=== PATIENT | male | born 1970 | race Caucasian/White ===

== ENCOUNTER 2017-12-21 08:30 | Outpatient (RCR) | payer OTHER, SELFPAY | END 2017-12-27 23:59 | LOC: DC 08:30 | PROVIDERS: Family Provider Family Medicine; PCP Family Medicine; Visit Provider Family Medicine | DX: E11.65 Type 2 diabetes mellitus with hyperglycemia (principal); E78.5 Hyperlipidemia, unspecified; Z71.3 Dietary counseling and surveillance | CPT/HCPCS: 97802; 97803 ==

== ENCOUNTER 2018-03-15 08:20 | Outpatient (RCR) | payer OTHER, SELFPAY | END 2018-03-15 23:59 | LOC: DC 08:20 | PROVIDERS: Family Provider Family Medicine; PCP Family Medicine; Visit Provider Family Medicine | DX: E11.65 Type 2 diabetes mellitus with hyperglycemia (principal); E78.5 Hyperlipidemia, unspecified; Z71.3 Dietary counseling and surveillance | CPT/HCPCS: 97803 ==